=== PATIENT | female | born 1995 ===

== ENCOUNTER 2017-08-23 03:22 | Emergency (ER) | payer MEDICAID ==
[2017-08-23 03:22] VITALS: BMI 40.6
[2017-08-23 03:48] VITALS: BP 139/73; PULSE 82; RESP 17; TEMP 98.5; O2SAT 99
[2017-08-23] MEDS ORDERED: Sodium Chloride 0.9% 1,000 ML IV STA (04:03)
--- NOTE | 2017-08-23 04:05 | ED PDOC ---
HPI:Nausea, Vomiting, Diarrhea Time Seen by Provider: 08/23/17 03:55 Chief Complaint (Nursing): Abdominal Pain Chief Complaint (Provider): vomiting, diarrhea History Per: Patient History/Exam Limitations: no limitations Onset/Duration Of Symptoms: Hrs (2) Current Symptoms Are (Timing): Still Present Quality Of Discomfort: Burning, "Pain" Associated Symptoms: Nausea, Vomiting, Diarrhea Additional History Per: Patient Additional Complaint(s): 21 y/o female presents with acute onset vomiting, diarrhea x 2 hours. Associated epigastric abdomianl pain. Patient states symptoms woke her from her sleep. Denies fever, chest pain, shortness of breath, urinary symptoms, recent travel, sick contacts. Patient reports eating pasta and red sauce for dinner. Past Medical History Reviewed: Historical Data, Nursing Documentation, Vital Signs Vital Signs: Last Vital Signs Temp 98.5 F 08/23/17 03:46 Pulse 82 08/23/17 03:46 Resp 17 08/23/17 03:46 BP 139/73 08/23/17 03:46 Pulse Ox 99 08/23/17 03:46 - Medical History PMH: No Chronic Diseases - Surgical History Surgical History: No Surg Hx - Family History Family History: States: No Known Family Hx - Immunization History Hx Tetanus Toxoid Vaccination: No Hx Influenza Vaccination: No Hx Pneumococcal Vaccination: No - Home Medications Home Medications: Ambulatory Orders Medication Instructions Recorded Ondansetron [Zofran Odt] 8 mg PO TID PRN #10 odt 06/19/17 Pantoprazole Sodium [Protonix] 40 mg PO DAILY #14 ect 06/19/17 Nitrofurantoin Macrocrystals 100 mg PO BID #14 cap 08/23/17 [Macrobid] Ondansetron ODT [Zofran ODT] 4 mg PO Q8 PRN #10 odt 08/23/17 - Allergies Allergies/Adverse Reactions: Allergies Allergy/AdvReac Type Severity Reaction Status Date / Time No Known Allergies Allergy Verified 08/23/17 03:48 Review of Systems ROS Statement: Except As Marked, All Systems Reviewed And Found Negative Gastrointestinal: Positive for: Nausea, Vomiting, Abdominal Pain, Diarrhea Physical Exam - Reviewed Nursing Documentation Reviewed: Yes Vital Signs Reviewed: Yes - Physical Exam Appears: Positive for: Well, Non-toxic, No Acute Distress Head Exam: Positive for: ATRAUMATIC, NORMAL INSPECTION, NORMOCEPHALIC Skin: Positive for: Normal Color Eye Exam: Positive for: Normal appearance ENT: Positive for: Normal ENT Inspection Cardiovascular/Chest: Positive for: Regular Rate, Rhythm Respiratory: Positive for: Normal Breath Sounds Gastrointestinal/Abdominal: Positive for: Bowel Sounds, Soft, Tenderness ( epigastric) Back: Positive for: Normal Inspection Extremity: Positive for: Normal ROM Neurologic/Psych: Positive for: Alert, Oriented - Laboratory Results Result Diagrams: 08/23/17 04:10 08/23/17 04:10 - ECG O2 Sat by Pulse Oximetry: 99 - Progress ED Course And Treament: labs, urine, IV fluids, IV zofran, IV pepcid On re-eval, patient states she is feeling better. Tolerating PO. Patient educated on findings, discharged with rx Zofran, Macrobid. Patient states she has Protonix from previous ED visit for gastritis-type symptoms, advised to take as directed. Fluids. [place] diet. Follow up PMD 2-3 days. Return precautions given. Disposition - Clinical Impression Clinical Impression: Urinary tract infection, Gastroenteritis - Patient ED Disposition Is Patient to be Admitted: No Counseled Patient/Family Regarding: Studies Performed, Diagnosis, Need For Followup, Rx Given - Disposition Disposition: Routine/Home Disposition Time: 05:47 Condition: IMPROVED Prescriptions: Nitrofurantoin Macrocrystals [Macrobid] 100 mg PO BID #14 cap Ondansetron ODT [Zofran ODT] 4 mg PO Q8 PRN #10 odt PRN Reason: Nausea/Vomiting Instructions: Gastroenteritis (ED), Urinary Tract Infection in Women (ED) Forms: [employer] (Maori)
[2017-08-23 04:54] LABS: BASO # 0.1 K/uL (0.0-0.2); BASO % 0.7 % (0.0-2.0); EOS # 0.1 K/uL (0.0-0.7); LYMPH # 2.6 K/uL (1.0-4.3); LYMPH % 22.7 % (20.0-40.0); MEAN CELL VOLUME 83.3 fl (81.0-99.0); MEAN CORPUSCULAR HEMOGLOBIN 26.1 pg (27.0-31.0); MEAN CORPUSCULAR HGB CONC 31.3 g/dL (33.0-37.0); MEAN PLATELET VOLUME 9.7 fl (7.2-11.7); MONO # 0.7 K/uL (0.0-0.8); MONO % 6.5 % (0.0-10.0); NEUT # 7.9 K/uL (1.8-7.0); NEUT % 69.1 % (50.0-75.0); RBC 4.6 Mil/uL (3.80-5.20); RED CELL DISTRIBUTION WIDTH 14.4 % (11.5-14.5); WHITE BLOOD COUNT 11.5 K/uL (4.8-10.8)
[2017-08-23 04:58] LABS: ALB/GLOB RATIO 1.2 (1.0-2.1); ALBUMIN 3.8 g/dL (3.5-5.0); ALT/SGPT 44 U/L (9-52); AST/SGOT 41 U/L (14-36); BLOOD UREA NITROGEN 10 mg/dl (7-17); CALCIUM 8.9 mg/dL (8.4-10.2); GFR AFRICAN-AMERICAN > 60; GFR NON-AFRICAN AMERICAN > 60; LIPASE 118 U/L (23-300)
[2017-08-23 05:39] LABS: SQUAMOUS EPITHIAL < 1 /hpf (0-5); URINE BACTERIA RARE (<OCC); URINE BILIRUBIN NEGATIVE (NEGATIVE); URINE CLARITY SLIGHTY-CLOUDY (Clear); URINE COLOR YELLOW (YELLOW); URINE GLUCOSE (UA) NEG (Normal); URINE LEUKOCYTE ESTERASE MOD Leu/uL (Negative); URINE NITRATE NEGATIVE (NEGATIVE); URINE PROTEIN NEGATIVE (NEGATIVE); URINE UROBILINOGEN 0.2-1.0 mg/dL (0.2-1.0)
[2017-08-23 05:40] LABS: URINE BLOOD SMALL (NEGATIVE)
== END 2017-08-23 06:34 | disposition home or self-care (01) ==
LOC: H.ER 03:22
DX: K52.9 Noninfective gastroenteritis and colitis, unspecified (principal); N39.0 Urinary tract infection, site not specified
CPT/HCPCS: 80053; 81003; 81025; 83690; 85025; 87086; 87181; 96374; 99282; J2405; J7040

== ENCOUNTER 2017-10-14 20:07 | Emergency (ER) | payer MEDICAID ==
[2017-10-14 20:07] VITALS: BMI 40.6
[2017-10-14 20:43] VITALS: BP 119/73; PULSE 87; RESP 18; TEMP 98.8; O2SAT 100
[2017-10-14] MEDS ORDERED: Sodium Chloride 0.9% 1,000 ML IV STA (21:12)
--- NOTE | 2017-10-14 21:14 | ED PDOC ---
HPI: Abdomen Time Seen by Provider: 10/14/17 21:12 Chief Complaint (Nursing): Abdominal Pain Chief Complaint (Provider): abdominal pain History Per: Patient (22 y/o female here with right lower/suprapubic abdominal pain intermittent crampy pain this week. Notes additional breast tenderness/ nausea. Denies any vaginal bleeding/fevers/chills/dysuria.) Past Medical History Reviewed: Historical Data, Nursing Documentation, Vital Signs Vital Signs: Last Vital Signs Temp 98.8 F 10/14/17 20:38 Pulse 87 10/14/17 20:38 Resp 18 10/14/17 20:38 BP 119/73 10/14/17 20:38 Pulse Ox 100 10/14/17 21:14 - Medical History PMH: Gastritis Denies: Chronic Kidney Disease - Family History Family History: States: No Known Family Hx - Immunization History Hx Tetanus Toxoid Vaccination: No Hx Influenza Vaccination: No Hx Pneumococcal Vaccination: No - Home Medications Home Medications: Ambulatory Orders Medication Instructions Recorded Ciprofloxacin [Cipro] 500 mg PO BID #14 tab 09/19/17 Docusate Sodium [Colace] 100 mg PO BID #20 capsule 09/19/17 Multivit/Folic Acid/I 1 tab PO DAILY #30 tab 10/15/17 [ Plus] - Allergies Allergies/Adverse Reactions: Allergies Allergy/AdvReac Type Severity Reaction Status Date / Time No Known Allergies Allergy Verified 09/15/17 12:10 Review of Systems ROS Statement: Except As Marked, All Systems Reviewed And Found Negative Gastrointestinal: Positive for: Abdominal Pain Physical Exam - Reviewed Nursing Documentation Reviewed: Yes Vital Signs Reviewed: Yes - Physical Exam Appears: Positive for: Well, Non-toxic, No Acute Distress Head Exam: Positive for: ATRAUMATIC, NORMAL INSPECTION, NORMOCEPHALIC Skin: Positive for: Normal Color, Warm, DRY Eye Exam: Positive for: EOMI, Normal appearance, PERRL ENT: Positive for: Normal ENT Inspection Neck: Positive for: Normal, Painless ROM Cardiovascular/Chest: Positive for: Regular Rate, Rhythm Respiratory: Positive for: CNT, Normal Breath Sounds Gastrointestinal/Abdominal: Positive for: Normal Exam, Bowel Sounds, Soft Back: Positive for: Normal Inspection Extremity: Positive for: Normal ROM Neurologic/Psych: Positive for: Alert, Oriented - Laboratory Results Result Diagrams: 10/14/17 22:00 10/14/17 22:00 Urine POC: Positive Urine dip results: Negative for: Leukocyte Esterase, Blood, Nitrate, Ketones, Glucose, Bilirubin, Protein - ECG O2 Sat by Pulse Oximetry: 100 - Progress ED Course And Treament: Ultrasound transvaginal: FINDINGS: Gestation: Single live intrauterine gestation. heart rate of 152 beats per minute. [place]-rump length of 1.2 cm, correlating with gestational age of 7 weeks 3 days. Uterus/cervix: No subchorionic hemorrhage. No cervical dilatation or effacement. Probable nabothian cyst. Ovaries: RIGHT ovary: Probable 1.6 x 2.0 x 1.7 cm corpus luteal cyst. LEFT ovary : Normal. No adnexal masses. Free fluid: No significant free fluid. IMPRESSION: 1. Single live intrauterine gestation. 2. Incidental/non-acute findings are described above. Thank you for allowing us to participate in the care of your patient. Dictated and Authenticated by: Ren Cummings MD NS 1 liter 500ml per hour Disposition - Clinical Impression Clinical Impression: Abdominal pain during , Corpus luteum cyst of right ovary - Patient ED Disposition Is Patient to be Admitted: No - Disposition [facility] Disposition: Routine/Home Disposition Time: 00:07 Condition: FAIR Prescriptions: Multivit/Folic Acid/I [ Plus] 1 tab PO DAILY #30 tab Instructions: Ovarian Cyst (DC), Threatened Miscarriage (DC) Forms: [employer] (Algerian)
[2017-10-14 21:45] LABS: SQUAMOUS EPITHIAL 1 /hpf (0-5); URINE AMORPHOUS SEDIMENT RARE /ul (<OCC); URINE BILIRUBIN NEGATIVE (NEGATIVE); URINE BLOOD NEGATIVE (NEGATIVE); URINE CLARITY SLIGHTY-CLOUDY (Clear); URINE COLOR YELLOW (YELLOW); URINE GLUCOSE (UA) NEG (Normal); URINE LEUKOCYTE ESTERASE NEG Leu/uL (Negative); URINE NITRATE NEGATIVE (NEGATIVE); URINE PROTEIN NEGATIVE (NEGATIVE); URINE UROBILINOGEN 0.2-1.0 mg/dL (0.2-1.0)
[2017-10-14 22:19] LABS: BASO % 0.2 % (0.0-2.0); EOS # 0.1 K/uL (0.0-0.7); EOS % 0.9 % (0.0-4.0); HEMOGLOBIN 12.6 g/dL (12.0-16.0); LYMPH # 3.6 K/uL (1.0-4.3); MEAN CELL VOLUME 82.6 fl (81.0-99.0); MEAN CORPUSCULAR HEMOGLOBIN 26.9 pg (27.0-31.0); MEAN CORPUSCULAR HGB CONC 32.6 g/dL (33.0-37.0); MEAN PLATELET VOLUME 9.6 fl (7.2-11.7); MONO # 0.8 K/uL (0.0-0.8); MONO % 6.9 % (0.0-10.0); NEUT # 7.7 K/uL (1.8-7.0); NRBC % 0.1 % (0.0-0.0); RBC 4.66 Mil/uL (3.80-5.20); RED CELL DISTRIBUTION WIDTH 14.8 % (11.5-14.5); WHITE BLOOD COUNT 12.3 K/uL (4.8-10.8)
[2017-10-14 22:28] LABS: ALB/GLOB RATIO 1.2 (1.0-2.1); ALT/SGPT 50 U/L (9-52); AST/SGOT 29 U/L (14-36); BLOOD UREA NITROGEN 7 mg/dl (7-17); GFR AFRICAN-AMERICAN > 60; GFR NON-AFRICAN AMERICAN > 60
[2017-10-14 22:36] LABS: PARTIAL THROMBOPLASTIN TIME 32.8 Seconds (25.6-37.1); PROTHROMBIN TIME 11.4 Seconds (9.8-13.1)
--- NOTE | 2017-10-15 00:02 | US ---
EXAM: US , Transvaginal CLINICAL HISTORY: 22 years old, female; Pain; complicated by abdominal or pelvic pain; Lower; First trimester; Gestational age or lmp: 08/21/2016; ; Patient HX: Pt states cramping; Additional info: Right adnexal tenderness TECHNIQUE: Real-time transvaginal obstetrical ultrasound of the maternal pelvis and a first trimester with image documentation. Transvaginal imaging was used for better evaluation of the fetus and adnexa. COMPARISON: No relevant prior studies available. FINDINGS: Gestation: Single live intrauterine gestation. heart rate of 152 beats per minute. [place]-rump length of 1.2 cm, correlating with gestational age of 7 weeks 3 days. Uterus/cervix: No subchorionic hemorrhage. No cervical dilatation or effacement. Probable nabothian cyst. Ovaries: RIGHT ovary: Probable 1.6 x 2.0 x 1.7 cm corpus luteal cyst. LEFT ovary: Normal. No adnexal masses. Free fluid: No significant free fluid. IMPRESSION: 1. Single live intrauterine gestation. 2. Incidental/non-acute findings are described above.
== END 2017-10-15 00:59 | disposition home or self-care (01) ==
LOC: H.ER 20:07
DX: N83.10 Corpus luteum cyst of ovary, unspecified side (principal); O20.0 Threatened abortion
CPT/HCPCS: 76817; 80053; 81003; 81025; 84702; 85025; 85610; 85730; 86850; 86900; 87086; 87491; 87591; 99283; J7040

== ENCOUNTER 2018-05-29 02:39 | Inpatient (IN) | payer MEDICAID ==
[2018-05-29 05:19] VITALS: BMI 43.5
[2018-05-29 07:20] LABS: BASO # 0.1 K/uL (0.0-0.2); BASO % 0.9 % (0.0-2.0); EOS % 0.4 % (0.0-4.0); HEMOGLOBIN 13.5 g/dL (12.0-16.0); LYMPH # 2.6 K/uL (1.0-4.3); LYMPH % 23.7 % (20.0-40.0); MEAN CELL VOLUME 84.2 fl (81.0-99.0); MEAN CORPUSCULAR HEMOGLOBIN 27.5 pg (27.0-31.0); MEAN CORPUSCULAR HGB CONC 32.7 g/dL (33.0-37.0); MEAN PLATELET VOLUME 11.7 fl (7.2-11.7); MONO # 0.7 K/uL (0.0-0.8); MONO % 6.4 % (0.0-10.0); NEUT # 7.6 K/uL (1.8-7.0); NEUT % 68.6 % (50.0-75.0); RBC 4.91 Mil/uL (3.80-5.20); RED CELL DISTRIBUTION WIDTH 16.3 % (11.5-14.5); WHITE BLOOD COUNT 11.1 K/uL (4.8-10.8)
--- NOTE | 2018-05-29 07:24 | OBHP ---
Datetime: 05/29/2018 03:43 IP Adm Impression: Term, intrauterine ; Intact Membranes IP Adm Impression Other: latent phase of labor IP Admit Plan: Observation/Evaluation Admit Comment, IP Provider: 22 yo with IUP @ 40.1 based on KELLEE of 05/28/18 presents because of Contractions that began at 12:30 and occur every 5 min. She denies vaginal bleeding and loss of fluid per the vagina. She reports good movement. Patient follows with Dr. Hernandes and she last vis ited the office this morning where her cervical exam was 2 cm dilated. Denies chest pain, shortness o f breath, nausea, vomiting and dysuria. ROS: negative except for above. ObHx: Denies PMH: Denies Family history: Mother with DM2 and Father with HLD and HTN Surgical history: Cholestectomy Allergies: N.K.D.A Medications: PNV Labs: HIV: negative HbsAg: negative GBS: negative Rubella: Immune Gc/Cl: negative RPR: negative ABO: A+ antibody: Negative. Physical exam: No acute distress Heart: S1 and S2 appreciated. No murmurs, gallops or rubs. Lungs: Clear air entry bilaterally. Abdomen: Gravid, Soft, non-tender to palpation. Vaginal exam: with [employer] Consultant: 2//-2 FHT: 130 baseline; moderate variability; Accelerations present; irregular contractions; Category 1 Assessment: 22 yo with IUP @ 40.1 based on KELLEE of 05/28/18 presents because of Contractions w ith unchanged cervical exam from this morning. Plan: - Continous monitoring. - patient encouraged to ambulate. Discussed with Dr. Zamora --Norma Hawthorne, PGY1 Family Medicine OB Hospitalist on-call. With PGY1, i saw this pt and agree with note. spoke with PMD she lives in [place]...ambualte and observe progress MAHNDO Pelvic Type - PN: Adequate Extremities - PN: Normal Abdomen - PN: Normal Back - PN: Normal Breast - PN: Not Done Lungs - PN: Normal Heart - PN: Normal Thyroid - PN: Not Done Neurologic - PN: Not Done HEENT - PN: Not Done General - PN: Normal Presentation-Admit: Vertex FHR - Baseline A Provider: 130 Membranes, Provider: Intact Contraction Comments Provider: irregular IP Hx Assessment: The History has been Reviewed and is Current EGA AdmitDate IP: 40.1 Vital Signs Provider: Reviewed; Within Normal Limits IP Chief Complaint: Uterine contractions; Maternal discomfort NICHD Variability Prov Fetus A: Moderate 6-25bpm NICHD Accel Fetus A IP Provider: 15X15 FHR Category Provider Fetus A: Category I NICHD Decel Fetus A IP Provider: None Dilatation, Provider: 2 Effacement, Provider: 90 Station, Provider: -2 Genitourinary Exam: Normal DTRs - PN: Not Done
[2018-05-29] MEDS ORDERED: Fentanyl/Bupivacaine HCl 250 ML EPI ONE (12:46)
[2018-05-29] MEDS ORDERED: Lidocaine 1% 20 MG/2 ML PF AMP ONE (13:25)
[2018-05-29] MEDS ORDERED: Lidocaine 2% PF (10 ml) Amp ONE (13:27)
[2018-05-29] MEDS: Lactated Ringer's 1,000 ML IV SCH ×2 (13:40→18:57)
[2018-05-29] MEDS ORDERED: Oxytocin 30 UNIT 30 UNITS/500 ML BAG IV ONE ×2 (17:46→19:44)
[2018-05-29] MEDS ORDERED: OXYTOCIN/0.9 % NS 20 UNIT/1,000 ML BAG IV SCH (19:45)
[2018-05-29] MEDS ORDERED: cefOXitin 2 GM in Sodium Chloride 0.9% 100 ML IVPB ONE (20:30)
--- NOTE | 2018-05-29 21:26 | OBPN ---
Datetime: 05/29/2018 21:17 IP Progress Impression Other: thick meconium stained fluid IP Progress Impression: Arrest of dilatation/descent; Rupture of membranes IP Informed Consent Obtain: Section Delivery IP Progress Plan: Deliver- Section Membranes, Provider: Ruptured Amniotic Fluid Color, Provider: Meconium, Heavy Contraction Comments Provider: 3 mins FHR - Baseline A Provider: 140 Gestation - Est Wks by US: 40.0 Presentation-Admit: Cephalic IP Progress Note Comment: pt re-examined and no progress in about over 8 hrs despite AROM, epidural and pitocin augumentation Pt was informed and understands and agreed Informed consent obtained NICHD Variability Prov Fetus A: Minimal - Undetectable to <5bpm Dilatation, Provider: 5cm Effacement, Provider: 95 Station, Provider: -3/-2 NICHD Decel Fetus A IP Provider: Early Datetime: 05/29/2018 03:43 Vital Signs Provider: Reviewed; Within Normal Limits NICHD Accel Fetus A IP Provider: 15X15 FHR Category Provider Fetus A: Category I
[2018-05-29] MEDS ORDERED: Morphine 1 mg/ml preservative-free Inj(Duramorph) ONE (21:39)
[2018-05-29] MEDS ORDERED: Propofol 10 mg/ml Inj (20 ML) ONE ×2 (22:13→22:31)
[2018-05-29] MEDS ORDERED: Midazolam 2 MG/2 ML VIAL ONE (22:16)
[2018-05-29] MEDS ORDERED: Morphine 1 mg/ml preservative-free Inj(Duramorph) EPI ONE (22:28)
[2018-05-29] MEDS ORDERED: HYDROmorphone 0.5 mg/0.5 ml ISec IVP PRN (22:40)
[2018-05-29] MEDS ORDERED: Oxycodone/Acetaminophen 5/325 mg Tab PO PRN (22:57)
--- NOTE | 2018-05-29 23:07 | OBDS ---
DELIVERY PERSONNEL Delivery Doctor: Cynthia Izaguirre MD Community Health Worker: Ma. Ramonita Barbour RN Anesthesiologist: Argelia, MATERNAL INFORMATION Delivery Anesthesia: Epidural; Spinal Estimated Blood Loss (ml): 850 Placenta Cultured: No Maternal Complications: None Provider Comments: see dictated surgeons note LABOR SUMMARY EDC: 05/28/2018 00:00 No. Babies in Womb: 1 Labor Anesthesia: Epidural LABOR INFORMATION Reason for Induction: Not Applicable Onset of Labor: 05/29/2018 12:15 Oxytocin: Augmentation Group B Beta Strep: Negative Steroids Given: None Reason Steroids Not Administered: Not Applicable MEMBRANES Membranes Rupture Method: Artificial Rupture of Membranes: 05/29/2018 12:15 Length of Rupture (hrs): 9.97 Amniotic Fluid Color: Light Meconium Amniotic Fluid Amount: Moderate Amniotic Fluid Odor: Normal STAGES OF LABOR Stage 3 hrs: 0 Stage 3 min: 1 Total Time in Labor hrs: 9 Total Time in Labor min: 59 VAGINAL DELIVERY Episiotomy: None Laceration Extension: N/A Laceration Type: None Laceration Repair: Not Applicable Sponge Count Correct: Yes Sharps Count Correct: Yes Count Comment: count correct x3 CSECTION DELIVERY Primary Indication: Secondary Arrest of Dilatation Other Primary Indication: Arrest of dilation Secondary Indication: Arrest of Descent Other Secondary Indication: meconium stained fluid CSection Urgency: Elective CSection Incidence: Primary Labor: Labor Elective: Elective CSection Incision: Lower Uterine Transverse Uterine Closure: Double-layer closure BABY A INFORMATION Delivery Date/Time: 05/29/2018 22:13 Method of Delivery: Born in Route : No : N/A Forceps: N/A Vacuum Extraction: N/A Shoulder Dystocia : No SHOULDER DYSTOCIA BABY A Infant Delivery Date/Time: 05/29/2018 22:13 PRESENTATION/POSITION BABY A Presentation: Cephalic PLACENTA INFORMATION BABY A Placenta Delivery Time : 05/29/2018 22:14 Placenta Method of Delivery: Spontaneous Placenta Status: Delivered SCORES BABY A Heart Rate 1 min: >100 bpm Resp Effort 1 min: Good Cry Reflex Irritability 1 min: Cough or Sneeze or Pulls Away Muscle Tone 1 min: Active Motion Color 1 min: Body Donovan, Extremities Blue Resuscitation Effort 1 min: Tactile Stimulation SCORE 1 MIN: 9 Heart Rate 5 min: >100 bpm Resp Effort 5 min: Good Cry Reflex Irritability 5 min: Cough or Sneeze or Pulls Away Muscle Tone 5 min: Active Motion Color 5 min: Body Donovan, Extremities Blue Resuscitation Effort 5 min: N/A SCORE 5 MIN: 9 INFANT INFORMATION BABY A Gestational Age at Delivery: 40.0 Gestational Status: Term Outcome : Liveborn Infant Condition : Stable Infant Sex: Male IDENTIFICATION/MEDS BABY A ID Band Number: [id number] ID Band Location: Left Leg; Left Arm WEIGHT/LENGTH BABY A Infant Birthweight (gms): 3640 Weight (lb): 8 Infant Weight (oz): 0 CORD INFORMATION BABY A No. Cord Vessels: 3 Nuchal Cord : Around Neck x1, Loose Cord Blood Taken: Yes
[2018-05-30] MEDS ORDERED: cefOXitin Sodium 1 GM in Sodium Chloride 0.9% 100 ML IVPB SCH (01:00)
[2018-05-30] MEDS ORDERED: Oxycodone/Acetaminophen 5/325 mg Tab PO PRN (01:06)
[2018-05-30] MEDS ORDERED: Morphine 1 mg/ml preservative-free Inj(Duramorph) EPI ONE (01:06)
[2018-05-30] MEDS: cefOXitin Sodium 1 GM in Sodium Chloride 0.9% 100 ML IVPB SCH ×2 (04:41→12:31)
[2018-05-30] MEDS ORDERED: OXYTOCIN/0.9 % NS 20 UNIT/1,000 ML BAG IV SCH ×2 (06:00)
[2018-05-30 07:09] LABS: HEMOGLOBIN 10.2 g/dL (12.0-16.0); MEAN CELL VOLUME 84.1 fl (81.0-99.0); MEAN CORPUSCULAR HEMOGLOBIN 27.5 pg (27.0-31.0); MEAN CORPUSCULAR HGB CONC 32.7 g/dL (33.0-37.0); RBC 3.71 Mil/uL (3.80-5.20); RED CELL DISTRIBUTION WIDTH 15.7 % (11.5-14.5); WHITE BLOOD COUNT 11.4 K/uL (4.8-10.8)
[2018-05-30] MEDS ORDERED: Multivitamin With Minerals Tab PO SCH (09:00)
--- NOTE | 2018-05-30 11:59 | OBPPN ---
Datetime: 05/30/2018 11:53 PP Pain Prov: Within normal limits PP Pain Prov comment: no SOB, chest or leg pains PP Nausea Prov: Denies PP Flatus Prov: Yes PP BM Prov: No PP Nausea Prov comment: Denies c/F PP Breasts Prov: Normal PP Lungs Prov: Normal PP Abdomen/Uterus Prov: Abnormal PP Lochia Prov: Normal PP Vulva/Perineum Prov: Normal PP CVA Tenderness Prov: Normal PP Extremities Prov: Normal PP C/S Incision Prov: Normal PP Progress Prov: Normal PP Comments Phys Exam Prov: breast NE, NT; abd soft not distended fundus firm below umb Dressing int act no sign of active bleeding Ext no calf tenderness. PP Impression Prov: Normal progression PP Plan Prov: Continue present management PP Progress Note Prov: CBC this am stable, advance diet as tolerated Continue po care OOB and ambula tion IP PP Procedures: None Vital Signs Provider PP: Reviewed
[2018-05-30] MEDS: Multivitamin With Minerals Tab PO SCH (13:57)
[2018-05-30] MEDS ORDERED: cefOXitin IV 1 gm in Dextrose 1 GM/50 ML BAG IVPB SCH (20:15)
[2018-05-31] MEDS: Multivitamin With Minerals Tab PO SCH (09:21)
--- NOTE | 2018-05-31 10:51 | OBPPN ---
Datetime: 05/31/2018 10:47 PP Pain Prov: Within normal limits PP Pain Prov comment: No SOB, chest or leg pains PP Nausea Prov: Denies PP Flatus Prov: Yes PP BM Prov: No PP Nausea Prov comment: voiding well now PP Breasts Prov: Normal PP Heart Prov: Normal PP Lungs Prov: Normal PP Abdomen/Uterus Prov: Abnormal PP Lochia Prov: Normal PP Vulva/Perineum Prov: Not Done PP CVA Tenderness Prov: Normal PP Extremities Prov: Normal PP C/S Incision Prov: Normal PP Progress Prov: Normal PP Comments Phys Exam Prov: Abd soft ND, fundus firm below the umb Dressing intact removed no active bleeding or suppt Otto in place Ext no calf tenderness PP Impression Prov: Normal progression PP Plan Prov: Continue present management PP Progress Note Prov: OOB and ambulation Dulcolax this pm if no jBM Vital Signs Provider PP: Reviewed
[2018-06-01] MEDS: Multivitamin With Minerals Tab PO SCH (09:19)
--- NOTE | 2018-06-01 11:04 | OBPPN ---
Datetime: 06/01/2018 10:55 PP Breasts Prov: Normal PP Heart Prov: Normal PP Lungs Prov: Normal PP Abdomen/Uterus Prov: Normal PP Lochia Prov: Normal PP Vulva/Perineum Prov: Normal PP CVA Tenderness Prov: Normal PP Extremities Prov: Normal PP C/S Incision Prov: Normal PP Progress Prov: Normal PP Comments Phys Exam Prov: Fundus firm. Maia in place, clean and dry, no erythema. PP Impression Prov: Normal progression PP Progress Note Prov: 22yo s/p csection, POD #3 --Patient doing well today. Pain well controlled with Motrin. Reports minimal lochia. Denies depre ssive symptoms although EPDS 13. environmental services worker consult pending. Patient denies homicidal/suicidal i deation. Patient ambuling well. +BM and denies urinary symptoms. No nausea or vomiting A/P- Patient for discharge home today if cleared by social media content specialist and baby cleared by Peds afte r repeat Bili --Rx given for Motrin --Encouraged ambulation and --Continue pelvic rest --Patient to follow up with Dr. Hernandes within 1 wk for Staple removal
[2018-06-02 02:05] VITALS: BP 128/77; PULSE 78; RESP 20; TEMP 98.1; O2SAT 98
--- NOTE | 2018-06-03 03:20 | OP ---
PROCEDURE DATE: 05/29/2018 PREOPERATIVE DIAGNOSES: 1. of 40 plus weeks gestation. 2. Arrest of dilatation and failure of descent. 3. Meconium stained amniotic fluid. 4. Maternal obesity. POSTOPERATIVE DIAGNOSES: 1. of 40 plus weeks gestation. 2. Nuchal cord x1. PROCEDURE PERFORMED: Primary low transverse segment section. SURGEON: Genaro Izaguirre MD AIR DUCT MECHANIC: Reji Dubon MD, who was present during the entire duration of the case. Lacing Presser needed in providing aid in positioning the patient, opening of the abdomen, closure of the abdomen, and delivery of the baby. No surgical garment assembly supervisor present at this time or available at this time. ANESTHESIA USED: Failed epidural and spinal per Dr. Stout. ESTIMATED BLOOD LOSS: 150 mL. DRAINS USED: None. REPLACEMENTS USED: None. FINDINGS: 1. Delivered living baby boy. Baby appears large for gestational age. Baby cried spontaneously. Pediatrist in attendance. score of 9 and 9. 2. Nuchal cord x1 loose. 3. Amniotic fluid, thick meconium stain. 4. Placenta completely intact. 5. Both tubes and ovaries appear grossly within normal limits to inspection bilaterally. DESCRIPTION OF PROCEDURE: The patient was taken to the operating room and placed on the operating table in a supine position. Following induction of spinal anesthesia, after the epidural had previously failed, the patient was then placed in a supine position. The abdomen was draped and prepped in a usual sterile manner. A [place] catheter had been previously inserted into the bladder and was draining clear fluid. At this time, Venodyne boots were applied to both legs, and the abdomen was then draped and prepped in a usual sterile manner. Anesthesia tested and found to be well secured, and we then proceeded to make a Pfannenstiel incision, two fingerbreadths above the symphysis pubis. The incision was then extended down to subcutaneous tissue also using sharp dissection. At this stage, we then proceeded to identify the fascia. Fascia was then entered in the midline. Incision on the fascia was then extended laterally on each direction. Following this, we then proceeded to identify the rectus muscle which was then slit at the midline disposing the peritoneum. Peritoneal layer was then picked up using 2 Mickie clamps and retracted superiorly using two Mickie clamps and then entered using sharp dissection. Incision in the peritoneum was then extended superiorly and inferiorly under direct visualization. At this time, we then proceeded to identify the bladder which was then retracted inferiorly using a [place] retractor. The low transverse segment of the uterus was identified, and the visceral peritoneum covering this area was then entered using sharp dissection. At this time, we then proceeded using blunt dissection to create a bladder flap which was then retracted inferiorly using the same [place] retractor. Following this, we then proceeded to a make an incision in the low transverse segment of the uterus. Upon entering the uterine cavity, thick meconium stained fluid noted to be present. The incision was then extended laterally on each direction using bandage scissors. Using a manual scooping procedure, a living baby boy was then delivered. There was a loop of cord around the neck, undone prior to full delivery. The baby appears to be large for gestational age. The baby was then immediately aspirated using the bulb suction. The umbilicus was then doubly clamped and cut, and the baby handed to the pediatric personnel who is standing by. Samples of cord blood were then obtained. The placenta was then delivered complete and intact. The uterus was then exteriorized to provide better visualization, and at this time, uterine cavity was then inserted using moist lap pad, and the uterus massaged and contracted well. Following this, we then proceeded to secure the uterine incision using multiple T clamps. The uterine incision was then approximated using 0 Vicryl suture in a continuous interlocking manner. A second layer also using 0 Vicryl suture was then placed imbricating the first layer. Hemostasis checked and found to be well secured. The bladder flap was then approximated using a 2-0 Rapide in a continuous manner. Again hemostasis was checked and found to be well secured. Free amniotic fluid and blood were then evacuated from the pelvic cavity, and the pelvic cavity was then irrigated using a saline solution. Both tubes and ovaries appeared grossly within normal limits to inspection bilaterally. All operative areas were checked, hemostatically secured; and the uterus was then allowed to retract back into its original position. At this time, we then proceeded to again recheck hemostasis, well secured, and the peritoneum was then approximated using 0 Vicryl suture in a continuous manner. Rectus muscle was also approximated in the midline using 0 Vicryl suture in a continuous manner. Fascia was then identified, was then approximately using 1 Vicryl suture in a continuous manner. Fascia was then checked and found to be free of defect. Subcutaneous tissue was then irrigated using saline solution and approximated using several interrupted 2-0 plain sutures. The skin was then approximated using skin nav. The patient tolerated the procedure well. There were no complications. She was transferred to the recovery room in satisfactory condition. Genaro Izaguirre MD
== END 2018-06-01 21:30 | disposition home or self-care (01) | DRG 788 ==
LOC: H.EROB2 02:39 → H.L&D 06:14 → H.OB/GYN 05-30 00:53
PROVIDERS: ADMIT Specialist; ATTEND Specialist
PROC: 10D00Z1 Extraction of Products of Conception, Low, Open Approach (ICD-10-PCS; principal; 2018-05-29)
PROC: 4A1HXCZ Monitoring of Products of Conception, Cardiac Rate, External Approach (ICD-10-PCS; 2018-05-29)
DX: O62.1 Secondary uterine inertia (principal); O77.0 Labor and delivery complicated by meconium in amniotic fluid; O62.0 Primary inadequate contractions; O69.81X0 Labor and delivery complicated by cord around neck, without compression, not applicable or unspecified; O99.214 Obesity complicating childbirth; Z3A.40 40 weeks gestation of pregnancy; Z37.0 Single live birth; O36.63X0 Maternal care for excessive fetal growth, third trimester, not applicable or unspecified